=== PATIENT | male | born 1940 | race Caucasian/White ===

== ENCOUNTER → 2023-07-23 13:50 | Outpatient (CLI) | payer MEDICARE, SELFPAY ==
--- NOTE | 2023-07-23 | DI.ECHO.S_ITS ---
[place] [facility]---------+ [facility] +---------+ : : [address] : [address] : : : : [id number] : : : : Phone: [phone]---------+ Echocardiogram Report + + :Name: ARRON FONSECA Study Date: 07/23/2023 Height: 70 in : :[facility] ReadingLocation: Weight: 180 lb : : Gender: Male BSA: 2.0 m2 : :: 1940 Age: 82 yrs BP: 136/85 mmHg: :Reason For Study: TIA : :Ordering Physician: KEESHA, : :TATIANA Performed By: Migdalia Richard : :Referring: TATIANA THAO : + + Interpretation Summary The ejection fraction is estimated to be 60-65%. There is mild mitral regurgitation. There is mild aortic regurgitation. There is mild tricuspid regurgitation. The right ventricular systolic pressure is estimated to be at least 25 mmHg based on an estimated right atrial pressure of 8 mm Hg. Procedure: A two-dimensional transthoracic echocardiogram with color flow and Doppler was performed. The study quality was technically adequate. There is no prior echocardiogram noted for this patient. The patient was in sinus bradycardia with heart rates between 47-61 bpm during the exam. Left Ventricle: The left ventricle is normal in size and wall thickness. The ejection fraction is estimated to be 60-65%. Left ventricular wall motion is normal. Right Ventricle: The right ventricle is normal size. The right ventricular systolic function is normal. Atria: The left atrial size is normal. Right atrial size is normal. There is no Doppler evidence for an interatrial shunt. Mitral Valve: The mitral valve is normal in structure and function. There is mild mitral regurgitation. Aortic Valve: The aortic valve is trileaflet. The aortic valve opens well. There is no aortic valve stenosis. There is mild aortic regurgitation. Tricuspid Valve: The tricuspid valve is normal in structure and function. The right ventricular systolic pressure is estimated to be at least 25 mmHg based on an estimated right atrial pressure of 8 mm Hg. There is mild tricuspid regurgitation. Pulmonic Valve: The pulmonic valve leaflets are thin and pliable; valve motion is normal. There is mild pulmonic regurgitation. Great Vessels: The aortic root is normal size. 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 This suggests a right atrial pressure of 8 mm Hg. Pericardium/ Pleura There is no pericardial effusion. There is no pleural effusion. MMode/2D Measurements & Calculations LVIDd: 5.3 cm LVOT diam: 2.4 cm LVIDs: 3.4 cm Ao root diam: 3.9 cm FS: 34.7 % asc Aorta Diam: 4.1 cm IVSd: 0.94 cm Ao Arch Diam (Prox Trans): 3.1 cm LVPWd: 0.72 cm LV foreman. diameter/BSA (cm/m^2): 2.6 LV sys. diameter/BSA (cm/m^2): 1.7 LA A2 area: 22.9 cm2 RA long axis: 4.3 cm LA A4 area: 9.8 cm2 RA area: 9.9 cm2 LA length (vol): 3.8 cm RA vol: 19.5 ml LA vol: 49.7 ml RA : 9.8 ml/m2 LA vol index: 24.9 ml/m2 IVC diam: 2.1 cm RVD1 (basal): 3.3 cm RVD2 (mid): 2.9 cm TAPSE: 1.9 cm Doppler Measurements & Calculations Ao V2 max: 130.6 cm/sec LVOT Max Munir: 96.0 cm/sec Ao V2 mean: 94.1 cm/sec LV V1 max P.7 mmHg Ao max P.8 mmHg LV V1 VTI: 20.7 cm Ao mean P.8 mmHg FABIAN(I,D): 3.4 cm2 Ao V2 VTI: 28.3 cm FABIAN(V,D): 3.4 cm2 sev ratio: 0.73 FABIAN indexed to BSA (cm^2/m^2): 1.7 MV E max munir: 56.2 cm/sec TR max munir: 208.2 cm/sec MV A max munir: 66.5 cm/sec TR max P.3 mmHg MV E/A: 0.85 PA V2 max: 129.1 cm/sec Med Peak E' Munir: 6.4 cm/sec PA V2 mean: 85.4 cm/sec E/E' med: 8.8 PA mean P.3 mmHg Lat Peak E' Munir: 8.5 cm/sec PA pr(Accel): 27.6 mmHg E/E' lat: 6.6 E/e' average: 7.7 MV dec time: 0.31 sec SVLVOT): 95.4 ml Reading Physician:03:55 PM
== END ==
PROVIDERS: PCP Internal Medicine; Referring Provider Internal Medicine; Visit Provider Internal Medicine
DX: G45.9 Transient cerebral ischemic attack, unspecified (principal); I08.3 Combined rheumatic disorders of mitral, aortic and tricuspid valves; I77.89 Other specified disorders of arteries and arterioles
CPT/HCPCS: 93306